=== PATIENT | male | born 1960 | race Two or more races ===

== ENCOUNTER 2025-01-03 16:10 | Inpatient (IN) | payer OTHER ==
[~2025-01-03] VITALS: Ht 152.4 cm; Wt 72.6 kg
--- NOTE | 2025-01-03 16:21 | NUR ---
PT ALERTA Y ORIENTADO X3 QUIEN REFIERE VENIR POR DOLOR ABDOMINAL QUE COMENZO EN EL ZOHAIB DE HOY
[2025-01-03] MEDS ORDERED: 0.9 % SODIUM CHLORIDE 1,000 ML IV STA (16:51)
--- NOTE | 2025-01-03 16:57 | NUR ---
SE EDUCA A PTE SOBRE TX MEDICO, SE MARCEL MUESTRAS DE LABORATORIO UTILIZANDO MEDIDAS ASEPTICAS. SE COLOCA H/L LOGAN DE EDEMA. SE COLOCA IV FLUIDS A PTE Y SE NOTIFICA ESTUDIO DE SONOGRAFIA PENDIENTE A REALIZAR.
[2025-01-03 17:17] LABS: BASO % 0.7 % (0.1-1.2); EOS # 0.03 (0.04-0.54); EOS % 0.4 % (0.7-7.0); LYMPH # 0.55 (1.18-3.74); LYMPH % 7.9 % (19.3-53.1); MEAN PLATELET VOLUME 9.80 fl (9.4-12.4); MONO # 0.72 (0.24-0.82); MONO % 10.4 % (4.7-12.5); NEUT # 5.49 (1.56-6.13); NEUT % 79.3 % (34.0-71.1); RED CELL DISTRIBUTION WIDTH 16.8 % (11.6-14.4)
[2025-01-03 17:21] LABS: ERYTHROCYTE SEDIMENTATION RATE 78 mm/hr (0-20)
[2025-01-03 17:41] LABS: INR 1.7
[2025-01-03 17:49] LABS: ALT/SGPT 66.0 U/L (12-78); AST/SGOT 285.0 U/L (15-37); BUN CREA RATIO 8.0 (7.0-25.0); CREATININE SERUM 0.86 mg/dL (0.70-1.30); GFR 89.82; GLOBULINA 5.1 G/DL (2.4-3.5); GLUCOSE FASTING 107.0 mg/dL (65-100); OSMOLALITY SERUM 263.0 MOSM/KG (275-295)
[2025-01-03 17:56] LABS: BILIRUBIN,CONJUGATED 15.65 mg/dL (0.0-0.2)
[2025-01-03 17:57] LABS: BILIRUBIN TOTAL 20.57 mg/dL (0.3-1.2)
[2025-01-03 18:47] LABS: URINE APPEARANCE Turbid; URINE BILIRRUBIN Large (NEGATIVE); URINE BLOOD Trace; URINE COLOR Orange; URINE GLUCOSE Negative (NEGATIVE); URINE KETONE Negative (NEGATIVE); URINE LEUKOCYTE Moderate; URINE NITRATE Positive; URINE PROTEIN 30 (NEGATIVE); URINE UROBILINOGEN 1.0 E.U./dl
[2025-01-03 19:13] LABS: URINE RBC 0-3 /HPF
[2025-01-03 19:14] LABS: URINE BACTERIA FEW; URINE EPITHELIAL CELLS 0-4 /HPF; URINE WBC 21-30 /hpf
[2025-01-03 19:16] LABS: URINE MUCUS HEAVY
[2025-01-03] MEDS ORDERED: PHYTONADIONE 10 MG/ML AMPUL IV SCH (23:22)
[2025-01-03] MEDS ORDERED: LACTULOSE 20 G/30 ML BLIST.PACK PO SCH (23:23)
[2025-01-03] MEDS ORDERED: PANTOPRAZOLE SODIUM 40 MG/VIAL VIAL IV SCH (23:24)
[2025-01-03] MEDS ORDERED: CEFTRIAXONE SODIUM 2,000 MG in 0.9 % SODIUM CHLORIDE 100 ML IV SCH (23:25)
[2025-01-03] MEDS ORDERED: POTASSIUM CHLORIDE 20MEQ/100ML H2O PB IV ONE (23:30)
[2025-01-03] MEDS ORDERED: OCTREOTIDE ACETATE 0.05MG/ML (50MCG/ML) AMPUL IV ONE (23:30)
[2025-01-03] MEDS ORDERED: ONDANSETRON HCL 4 MG in 0.9 % SODIUM CHLORIDE 50 ML IV PRN (23:30)
[2025-01-03] MEDS ORDERED: THIAMINE HCL 100 MG/ML 2 ML VIAL IV SCH (23:40)
[2025-01-04 01:00] VITALS: BP 113/70; O2SAT 100
[2025-01-04] MEDS ORDERED: ALBUMIN HUMAN-25 0.25GM/ML (50ML) VIAL IV SCH (01:00)
[2025-01-04 02:10] LABS: COVID-19 AG NEGATIVE (NEGATIVE)
[2025-01-04 08:25] LABS: ALT/SGPT 54.0 U/L (12-78); AST/SGOT 240.0 U/L (15-37)
[2025-01-04 08:39] LABS: BILIRUBIN,CONJUGATED 15.53 mg/dL (0.0-0.2)
[2025-01-04 08:45] LABS: BILIRUBIN TOTAL 20.27 mg/dL (0.3-1.2)
[2025-01-04] MEDS ORDERED: CHLORDIAZEPOXIDE HCL 25 MG CAPSULE PO SCH (09:00)
[2025-01-04] MEDS ORDERED: SPIRONOLACTONE 50 MG TABLET PO SCH (09:00)
[2025-01-04 10:56] VITALS: BP 104/68; O2SAT 93
[2025-01-04] MEDS ORDERED: POTASSIUM CHLORIDE 20MEQ/100ML H2O PB IV NR (13:45)
[2025-01-04] MEDS ORDERED: MAGNESIUM SULFATE IN WATER 50 ML IV NR ×2 (13:45→17:32)
[2025-01-04] MEDS ORDERED: PIPERACILLIN/TAZOBACTAM SODIUM 3.375 GM in 0.9 % SODIUM CHLORIDE 100 ML IV SCH (18:00)
[2025-01-04 18:04] VITALS: BP 110/55
[2025-01-04 21:50] VITALS: BP 110/70
[2025-01-05 02:00] VITALS: BP 107/71; O2SAT 99
[2025-01-05 06:15] LABS: BASO % 0.8 % (0.1-1.2); EOS # 0.04 (0.04-0.54); EOS % 0.8 % (0.7-7.0); LYMPH # 0.53 (1.18-3.74); LYMPH % 10.5 % (19.3-53.1); MEAN PLATELET VOLUME 10.10 fl (9.4-12.4); MONO # 0.39 (0.24-0.82); MONO % 7.7 % (4.7-12.5); NEUT # 3.99 (1.56-6.13); NEUT % 79.0 % (34.0-71.1); RED CELL DISTRIBUTION WIDTH 16.9 % (11.6-14.4)
[2025-01-05 07:06] LABS: BUN CREA RATIO 7.0 (7.0-25.0); CREATININE SERUM 0.92 mg/dL (0.70-1.30); GFR 83.09; GLUCOSE FASTING 84.0 mg/dL (65-100); OSMOLALITY SERUM 272.0 MOSM/KG (275-295)
[2025-01-05] MEDS ORDERED: POTASSIUM CHLORIDE IN WATER 100 ML IV ONE (08:45)
[2025-01-05 08:51] VITALS: BP 90/55; O2SAT 97
[2025-01-05] MEDS ORDERED: POTASSIUM CHLORIDE 20MEQ/100ML H2O PB IV NR (10:45)
[2025-01-05 12:41] LABS: ALT/SGPT 58.0 U/L (12-78); AST/SGOT 234.0 U/L (15-37)
[2025-01-05 12:54] LABS: BILIRUBIN TOTAL 23.21 mg/dL (0.3-1.2); BILIRUBIN,CONJUGATED 19.94 mg/dL (0.0-0.2)
[2025-01-05 17:00] VITALS: BP 120/68; O2SAT 97
[2025-01-05] MEDS ORDERED: POTASSIUM PHOS,M-BASIC-D-BASIC 18 MM in 0.9 % SODIUM CHLORIDE 250 ML IV ONE (19:15)
[2025-01-05 22:13] LABS: BILI PERITONEAL FLUID 5.0 mg/dl; CREA PERITONEAL FLUID 0.67 mg/dl; GLU PERITONEAL FLUID 102.0 mg/dl; LDH PERITONEAL FLUID 46.0 U/L; TP PERITONEAL FLUID 1.0 g/dl
[2025-01-06 02:45] VITALS: BP 108/77
[2025-01-06 06:58] LABS: ALT/SGPT 53.0 U/L (12-78); AST/SGOT 187.0 U/L (15-37); BUN CREA RATIO 7.0 (7.0-25.0); CREATININE SERUM 0.84 mg/dL (0.70-1.30); GFR 92.29; GLOBULINA 4.0 G/DL (2.4-3.5); GLUCOSE FASTING 94.0 mg/dL (65-100); OSMOLALITY SERUM 271.0 MOSM/KG (275-295)
[2025-01-06 07:13] LABS: BILIRUBIN TOTAL 23.26 mg/dL (0.3-1.2)
[2025-01-06 07:14] LABS: BILIRUBIN,CONJUGATED 17.3 mg/dL (0.0-0.2)
[2025-01-06] MEDS ORDERED: POTASSIUM CHLORIDE IN WATER 100 ML IV NR (08:00)
[2025-01-06 08:04] VITALS: BP 101/69; O2SAT 95
[2025-01-06 17:11] VITALS: BP 111/73
[2025-01-07 01:32] VITALS: BP 109/72; O2SAT 98
[2025-01-07 08:34] LABS: INR 2.06
[2025-01-07 08:56] LABS: ALT/SGPT 53.0 U/L (12-78); AST/SGOT 181.0 U/L (15-37); BUN CREA RATIO 5.0 (7.0-25.0); CREATININE SERUM 0.94 mg/dL (0.70-1.30); GFR 81.05; GLOBULINA 3.9 G/DL (2.4-3.5); GLUCOSE FASTING 68.0 mg/dL (65-100); OSMOLALITY SERUM 271.0 MOSM/KG (275-295)
[2025-01-07 09:19] VITALS: BP 103/68
[2025-01-07 09:31] LABS: BILIRUBIN TOTAL 22.95 mg/dL (0.3-1.2)
[2025-01-07] MEDS ORDERED: POTASSIUM CHLORIDE 20MEQ/100ML H2O PB IV NR (11:00)
[2025-01-07 16:42] VITALS: BP 99/64
[2025-01-08 00:43] VITALS: BP 112/73; O2SAT 97
[2025-01-08 08:59] VITALS: BP 101/70
[2025-01-08 09:00] LABS: ALT/SGPT 59.0 U/L (12-78); AST/SGOT 207.0 U/L (15-37); BUN CREA RATIO 5.0 (7.0-25.0); CREATININE SERUM 1.03 mg/dL (0.70-1.30); GFR 72.94; GLOBULINA 4.5 G/DL (2.4-3.5); GLUCOSE FASTING 71.0 mg/dL (65-100); OSMOLALITY SERUM 266.0 MOSM/KG (275-295)
[2025-01-08] MEDS ORDERED: CYCLOBENZAPRINE HCL 5 MG TABLET PO PRN (09:15)
[2025-01-08 09:57] LABS: BILIRUBIN TOTAL 22.32 mg/dL (0.3-1.2)
[2025-01-08 09:58] LABS: BILIRUBIN,CONJUGATED 18.39 mg/dL (0.0-0.2)
[2025-01-08 10:00] LABS: BILIRUBIN TOTAL 22.32 mg/dL (0.3-1.2)
[2025-01-08 18:07] VITALS: BP 112/79
[2025-01-09 08:12] VITALS: BP 96/66
[2025-01-09 12:51] LABS: BASO % 1.1 % (0.1-1.2); EOS # 0.07 (0.04-0.54); EOS % 1.1 % (0.7-7.0); LYMPH # 0.43 (1.18-3.74); LYMPH % 7.0 % (19.3-53.1); MEAN PLATELET VOLUME 9.50 fl (9.4-12.4); MONO # 0.90 (0.24-0.82); NEUT # 4.58 (1.56-6.13); NEUT % 75.0 % (34.0-71.1); RED CELL DISTRIBUTION WIDTH 17.6 % (11.6-14.4)
[2025-01-09 12:53] LABS: MONO % 14.7 % (4.7-12.5)
[2025-01-09 15:19] LABS: BUN CREA RATIO 5.0 (7.0-25.0); CREATININE SERUM 2.21 mg/dL (0.70-1.30); GFR 30.22; GLUCOSE FASTING 84.0 mg/dL (65-100); OSMOLALITY SERUM 274.0 MOSM/KG (275-295)
[2025-01-09 15:20] LABS: ALT/SGPT 59.0 U/L (12-78); AST/SGOT 207.0 U/L (15-37); BILIRUBIN TOTAL 24.83 mg/dL (0.3-1.2); GLOBULINA 4.3 G/DL (2.4-3.5)
[2025-01-09 15:59] VITALS: BP 102/69; O2SAT 96
[2025-01-09] MEDS ORDERED: CIPROFLOXACIN IN 5 % DEXTROSE 400 MG/200 ML PIGGYBAG IV SCH (21:00)
[2025-01-10 00:36] VITALS: BP 104/65; O2SAT 97
[2025-01-10 08:49] VITALS: BP 95/50; O2SAT 99
[2025-01-10] MEDS ORDERED: 0.9 % SODIUM CHLORIDE 1,000 ML IV SCH (09:30)
[2025-01-10 17:12] VITALS: BP 103/61; O2SAT 95
[2025-01-11 02:21] VITALS: BP 109/70; O2SAT 98
[2025-01-11 07:13] LABS: ALT/SGPT 59.0 U/L (12-78); AST/SGOT 206.0 U/L (15-37); BUN CREA RATIO 6.0 (7.0-25.0); CREATININE SERUM 3.86 mg/dL (0.70-1.30); GFR 15.88; GLOBULINA 4.2 G/DL (2.4-3.5); GLUCOSE FASTING 76.0 mg/dL (65-100); OSMOLALITY SERUM 275.0 MOSM/KG (275-295)
[2025-01-11 07:21] LABS: BASO % 0.6 % (0.1-1.2); EOS # 0.08 (0.04-0.54); EOS % 1.0 % (0.7-7.0); LYMPH # 0.65 (1.18-3.74); LYMPH % 8.4 % (19.3-53.1); MEAN PLATELET VOLUME 9.50 fl (9.4-12.4); MONO # 1.24 (0.24-0.82); NEUT # 5.44 (1.56-6.13); NEUT % 70.3 % (34.0-71.1); RED CELL DISTRIBUTION WIDTH 16.9 % (11.6-14.4)
[2025-01-11 07:55] LABS: BILIRUBIN TOTAL 24.84 mg/dL (0.3-1.2)
[2025-01-11 08:03] LABS: MONO % 16.0 % (4.7-12.5)
[2025-01-11] MEDS ORDERED: OCTREOTIDE ACETATE 1,000 MCG/5 ML VIAL IJ SCH (08:45)
[2025-01-11 08:58] VITALS: BP 107/62; O2SAT 93
[2025-01-11] MEDS ORDERED: CIPROFLOXACIN IN 5 % DEXTROSE 400 MG/200 ML PIGGYBAG IV SCH (09:00)
[2025-01-11] MEDS ORDERED: MIDODRINE HCL 5 MG TABLET PO SCH (09:00)
[2025-01-11] MEDS ORDERED: SPIRONOLACTONE 50 MG TABLET PO SCH (09:00)
[2025-01-11] MEDS ORDERED: 0.9 % SODIUM CHLORIDE 1,000 ML IV SCH (09:05)
[2025-01-11 09:22] LABS: BAND MAN 9.0 %; LYMPHOCYTE MAN 10.0 %; MONOCYTE MAN 11.0 %; NEUTROPHILS MAN 70.0 %
[2025-01-11] MEDS ORDERED: OCTREOTIDE ACETATE IV SCH (12:00)
[2025-01-11] MEDS ORDERED: DEXTROSE 5% IV SCH (12:00)
[2025-01-11] MEDS ORDERED: WATER IV SCH (12:00)
[2025-01-11 14:57] LABS: ALT/SGPT 60.0 U/L (12-78); AST/SGOT 197.0 U/L (15-37); GLOBULINA 4.2 G/DL (2.4-3.5); GLUCOSE FASTING 182.0 mg/dL (65-100); OSMOLALITY SERUM 277.0 MOSM/KG (275-295)
[2025-01-11 15:04] LABS: BUN CREA RATIO 7.0 (7.0-25.0); GFR 13.65
[2025-01-11 15:05] LABS: BILIRUBIN TOTAL 23.45 mg/dL (0.3-1.2); CREATININE SERUM 4.4 mg/dL (0.70-1.30)
[2025-01-11 17:33] VITALS: BP 110/70; O2SAT 95
[2025-01-12 08:00] VITALS: BP 89/50; O2SAT 100
[2025-01-12 16:40] VITALS: BP 102/67
[2025-01-12] MEDS ORDERED: 0.9 % SODIUM CHLORIDE 1,000 ML IV SCH (16:45)
[2025-01-13 00:38] VITALS: BP 102/62; O2SAT 99
[2025-01-13 09:27] VITALS: BP 96/59; O2SAT 99
[2025-01-13 12:02] LABS: GLUCOSE FASTING 108 mg/dL (65-100); OSMOLALITY SERUM 287 MOSM/KG (275-295); VLDL 26 (0-39)
[2025-01-13 12:10] LABS: BUN CREA RATIO 9 (7.0-25.0); GFR 11.62
[2025-01-13 12:11] LABS: CHOL HDL RATIO 5.0 (0-5.0); HDL 10 mg/dl (40-60); LDL 13 mg/dl (0-130)
[2025-01-13 12:12] LABS: CREATININE SERUM 5.06 mg/dL (0.70-1.30)
[2025-01-13] MEDS ORDERED: AA 4.25%/CAL/LYTES/DEXT 5% 1,000 ML PERIFERAL SCH (17:00)
[2025-01-13 17:19] VITALS: BP 97/62; O2SAT 97
[2025-01-13] MEDS ORDERED: FAT EMUL/SOY/MCT/OLIV/FISH OIL 100 ML IV SCH (21:00)
[2025-01-14 01:16] VITALS: BP 100/65; O2SAT 96
[2025-01-14 08:51] VITALS: BP 93/62
[2025-01-14 17:40] VITALS: BP 94/65
[2025-01-15 00:58] VITALS: BP 98/67
[2025-01-15 09:07] VITALS: BP 95/60; O2SAT 93
[2025-01-15 17:34] VITALS: BP 95/63
[2025-01-16 00:52] VITALS: BP 91/65
[2025-01-16 09:25] VITALS: BP 95/69
[2025-01-16 17:39] VITALS: BP 106/73
[2025-01-17 01:57] VITALS: BP 95/73; O2SAT 95
[2025-01-17 01:58] VITALS: BP 155/92; O2SAT 98
[2025-01-17 07:05] LABS: ALT/SGPT 71.0 U/L (12-78); AST/SGOT 280.0 U/L (15-37); GLOBULINA 4.1 G/DL (2.4-3.5); GLUCOSE FASTING 72.0 mg/dL (65-100); OSMOLALITY SERUM 312.0 MOSM/KG (275-295)
[2025-01-17 07:23] LABS: BUN CREA RATIO 17.0 (7.0-25.0); CREATININE SERUM 3.96 mg/dL (0.70-1.30); GFR 15.42
[2025-01-17 07:24] LABS: BILIRUBIN TOTAL 22.68 mg/dL (0.3-1.2)
[2025-01-17 08:12] VITALS: BP 99/55; O2SAT 94
[2025-01-17] MEDS ORDERED: SODIUM CHLORIDE 0.45 % 1,000 ML IV SCH (12:30)
[2025-01-17 16:19] VITALS: BP 68/45; O2SAT 83
== END 2025-01-17 22:30 | disposition expired | DRG 432 ==
LOC: ER 16:10 → SURG 23:32 → MEDI 01-04 15:46
PROVIDERS: General Practice; Internal Medicine Nephrology; Radiology Vascular & Interventional Radiology; ADMIT Student in an Organized Health Care Education/Training Program; ATTEND Student in an Organized Health Care Education/Training Program
PROC: BW40ZZZ Ultrasonography of Abdomen (ICD-10-PCS; 2025-01-03)
PROC: BW21ZZZ Computerized Tomography (CT Scan) of Abdomen and Pelvis (ICD-10-PCS; 2025-01-03)
PROC: BF37ZZZ Magnetic Resonance Imaging (MRI) of Pancreas (ICD-10-PCS; 2025-01-03)
PROC: 0W9G3ZX Drainage of Peritoneal Cavity, Percutaneous Approach, Diagnostic (ICD-10-PCS; principal; 2025-01-05)
DX: K70.31 Alcoholic cirrhosis of liver with ascites (principal); K76.7 Hepatorenal syndrome; N39.0 Urinary tract infection, site not specified; K70.40 Alcoholic hepatic failure without coma; F10.10 Alcohol abuse, uncomplicated; E87.6 Hypokalemia